=== PATIENT | female | born 2000 | race Caucasian/White ===

== ENCOUNTER 2022-09-11 17:22 | Emergency (ER) | payer MEDICAID, SELFPAY ==
[2022-09-11 17:25] VITALS: BP 130/76; PULSE 83; RESP 18; TEMP 36.6; O2SAT 99; BMI 34.0
[2022-09-11 19:04] LABS: Color, Urine Yellow (Yellow); Glucose, Dipstick Normal (Normal); Ketone-Dipstick 50 mg/dl (Negative); Leukocyte Esterase-Dipstick 25 /ul (Negative); Nitrite-Dipstick Negative (Negative); Occult Blood-Urine 25 /ul (Negative); Protein-Dipstick 30 mg/dl (Negative); Urine Clarity Sl. Cloudy (Clear); Urine Urobilinogen 1 mg/dl (Normal)
[2022-09-11 19:06] LABS: Urine Bilirubin Dipstick 1 mg/dL (Negative)
[2022-09-11 19:16] LABS: Mucous, Urine RARE /hpf (<or=2+)
[2022-09-11 19:17] LABS: Bacteria 1+ /hpf (None Seen); Internal QC Validated? YES +Cl - CLEAR BKGD; Pregnancy, Urine Negative Negative; Red Blood Cells-Urine 0-5 SEEN /hpf (0-5); Squamous Epithelial Cells - UA 0-5 SEEN /hpf (5-10); White Blood Cells 0-5 SEEN /hpf (0-5)
--- NOTE | 2022-09-11 19:44 | EX.ED.DYSGE1 ---
HPI History of Present Illness Chief Complaint: Abd Pain PFSH PFSH Home Medications metronidazole 500 mg tablet 500 mg PO BID 7 days #14 tabs 09/11/22 [Rx Last Taken Unknown] Allergy/AdvReac Type Severity Reaction Status Date / Time No Known Allergies Allergy Verified 09/11/22 17:25 Social History Smoking Status: Never smoker EXAM Physical Exam Const Vital Signs: 09/11/22 17:25 Temperature 97.8 F Temperature Source Temporal Pulse Rate 83 Respiratory Rate 18 Blood Pressure 130/76 H Blood Pressure Mean 94 Pulse Ox 99 Oxygen Delivery Method Room Air [facility] [place] Narrative Medical decision making narrative: HISTORY OF PRESENT ILLNESS: 21 old female here with 1 month of lower abdominal pain. States that she was treated with antibiotics for presumed BV in the past. She notes this feels similar. States she was tested within the last 3 days for all the STDs. States she has not been sexually active for the last week. She does note lower abdominal pain and some vaginal bleeding. Denies any vaginal discharge but does note a foul vaginal odor. Denies any nausea vomiting fever chest pain or kamran abdominal pain. No history abdominal surgeries. Last bowel was yesterday with no melena or hematochezia noted. Constipation or diarrhea noted. REVIEW OF SYSTEMS: Pertinent positives: Lower abdominal pain, vaginal bleeding Pertinent negatives: Syncope, chest pain PHYSICAL EXAM: Nursing triage notes reviewed, Vital signs reviewed Constitutional: [facility] HENT: MMM Eyes: Pupils equal round and reactive to light, Extraocular muscles intact Neck: No stridor, no JVD, full neck ROM Lungs: Clear to auscultation, No wheezing or rales. No increased work of breathing, no conversational dyspnea, no accessory muscle use, no nasal flaring. No respiratory distress noted Heart: Regular rate and rhythm, No murmurs, No rubs and No gallops, 2+ distal pulses (radial, femoral, posterior tibial) in all extremities Abdomen: Soft, there is no tenderness, rigidity, rebound or guarding, no obvious peritoneal signs, no palpable pulsatile abdominal masses, no auscultated abdominal bruit : No CVAT, deferred by patient Extremities: No edema Neuro: No focal neurological deficits, cranial nerves II through XII intact, 5/5 strength in all extremities. Intact sensation to light touch in all extremities, 2+ reflexes bilateral patella tendons. Normal gait. No ataxia. Skin: No rash or lesions noted MEDICAL DECISION MAKING: Chief Complaint: Abdominal pain ALL IMAGES (IF OBTAINED) HAVE BEEN PERSONALLY REVIEWED AND INTERPRETED BY MYSELF. See below MDM Narrative: Patient was hemodynamically stable, afebrile, nontoxic-appearing. Exam was benign. Not consistent with acute surgical pathology of the abdomen or pelvis. I considered the following differential diagnosis: AAA, small bowel obstruction, abdominal perforation, appendicitis, pancreatitis, hepatobiliary pathology (acute cholecystitis), mesenteric ischemia, abnormalities such as ovarian pathology, PID. I obtained a urinalysis rule out UTI, pyelonephritis. UA only showed 25 leuk esterase. Did send for culture. Had a shared decision make discussed with the patient as to utility of pelvic exam versus empiric treatment for what she presumed was bacterial vaginosis. I offered a pelvic exam however patient refused. Given UA was not consistent with an acute UTI I treat empirically metronidazole for presumed BV. I gave strict return precautions and follow-up instructions. I see nothing that would suggest an acute abdomen at this time. Based on history physical exam, risk factors, I have a low for bowel obstruction, incarcerated hernia, acute pancreatitis, intra-abdominal abscess, perforated viscus, diverticulitis, cholecystitis, appendicitis, PID, ovarian torsion, ectopic and tubo-ovarian abscess is very low. There is no evidence of peritonitis sepsis or toxicity at this time. I feel the patient can be managed as an outpatient with follow-up with her primary physician in the next 24 to 48 hours or soon as possible. Instructions have been given for the patient to return to the ED for worsening pain, anorexia, high fevers, intractable vomiting or bleeding. The patient and/or family, caregivers express understanding. The patient and/or family, caregivers agrees with the plan. Shared decision making: I will have a discussion with the patient and or visitors regarding risk/benefits of further testing or admission. They will be made aware of of the risk/benefits inherent in this decision they will be given the opportunity to voice understanding. Total critical care time today provided was at least 0 [] minutes. This excludes separately billable procedures. Critical care time (if documented) is secondary to the patient having high probability of clinically significant/life threatening deterioration in the patient's condition which required my urgent intervention. Lab Data Attestation: I reviewed the patient's lab results. Lab results narrative: UA without evidence of infection Urine test is negative Labs: Laboratory Results - last 24 hr 09/11/22 18:40 Urine Color Yellow Urine Clarity Sl. Cloudy Urine pH 5.0 Ur Specific [place] 1.030 Urine Protein 30 H Urine Glucose (UA) Normal Urine Ketones 50 H Urine Occult Blood 25 H Urine Nitrite Negative Urine Bilirubin 1 H Urine Urobilinogen 1 H Ur Leukocyte Esterase 25 H Urine RBC 0-5 SEEN Urine WBC 0-5 SEEN Ur Squamous Epith Cells 0-5 SEEN Urine Bacteria 1+ Urine Mucus RARE Urine Test Negative Discharge Plan Triage Chief Complaint: Abd Pain ED Provider: Keny Morales Dx/Rx/DC Orders Clinical Impression: Vaginal bleeding, Abdominal pain Instructions: Bacterial Vaginosis Prescriptions: New metronidazole 500 mg tablet 500 mg PO BID 7 Days Qty: 14 0RF Primary Care Provider: Bia Glover Referrals: Bia Glover, [facility] [Primary Care Provider] - Activity Restrictions/Additional Instructions: Thank you for trusting us with your care today! Please take Tylenol (2 pills, 650 mg), ibuprofen (2 pills, 400 mg) every 6 hours as needed for pain and fever control. Please begin taking metronidazole as prescribed. Please return if your symptoms change or worsen. Your urine has been sent for culture. Please expect a call from us if it is positive to change her antibiotic regimen. Please return to the emergency department if your symptoms change or worsen. Please follow with your primary care physician for further outpatient evaluation and management. Disposition Disposition: Home, Self Care
[2022-09-11 20:00] VITALS: BP 130/76; PULSE 83; RESP 18; O2SAT 99
== END 2022-09-11 20:00 | disposition home or self-care (01) ==
PROVIDERS: Emergency Provider Emergency Medicine; PCP Nurse Practitioner Family; Visit Provider Emergency Medicine
DX: R10.9 Unspecified abdominal pain (principal); N93.9 Abnormal uterine and vaginal bleeding, unspecified
CPT/HCPCS: 81001; 81025; 87086; 87088; 99282